=== PATIENT | female | born 2000 | race Caucasian/White ===

== ENCOUNTER 2025-01-24 06:28 | Day surgery (SDC) | payer OTHER, SELFPAY ==
[2025-01-24] VITALS (8 sets, daily range): BP systolic 119–135; BP diastolic 69–85; BMI 28.2
[2025-01-24] MEDS: TYLENOL 1000 MG PO (08:31)
[2025-01-24] MEDS: NORMOSOL-R/PLASMALYTE-A 1000 IV (08:37)
[2025-01-24] MEDS: DILAUDID 0.5 MG IV ×2 (12:05→12:19)
[2025-01-24] MEDS: ROXICODONE 5 MG PO (14:06)
== END 2025-01-24 14:12 | disposition home or self-care (01) ==
LOC: SDS 06:28
PROVIDERS: ATTENDING PHYSICIAN Otolaryngology
DX: J34.2 Deviated nasal septum (principal); J34.3 Hypertrophy of nasal turbinates; R04.0 Epistaxis
CPT/HCPCS: 30140